=== PATIENT | female | born 1975 ===

== ENCOUNTER 2023-04-12 18:02 | Emergency (ER) | payer BC, OTHER ==
[~2023-04-12] VITALS: Ht 152.4 cm; Wt 77.2 kg
--- NOTE | 2023-04-12 18:17 | ED Lower Extremity ---
General Stated Complaint: LT KNEE PAIN Source: patient History of Present Illness Date Seen by Provider: Apr 12, 2023 Time Seen by Provider: 18:06 Initial Comments 47-year-old female presenting with complaints of pain to the left anterior knee. She states that this initially started about 6 weeks ago but got better. 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 Then this morning she had tried to do a 5K run for work. About 2 miles and she said that she had to stop. She was having increased pain to the knee. She states that the pain occasionally shoots up her leg. She denies any known definite trauma to the knee to cause the pain initially. She had not taken Tylenol or ibuprofen or anything for the pain today. She tried to elevate her leg but was still having pain. She is due to go back to work again tomorrow and was concerned about the pain. Onset: this morning (exacerbation while attempting to run at a 5K event for work) Severity: moderate Pain/Injury Location: left knee Method of Injury: unknown Modifying Factors: Worse With Movement; Improves With Rest Allergies and Home Medications Allergies Coded Allergies: Penicillins (Verified Allergy, Unknown, 04/12/23) cephalexin (Verified Allergy, Unknown, 04/12/23) erythromycin base (Verified Allergy, Unknown, 04/12/23) Patient Home Medication List Home Medication List Reviewed: Yes Review of Systems Constitutional: No chills, No fever EENTM: no symptoms reported Respiratory: no symptoms reported Cardiovascular: no symptoms reported Gastrointestinal: no symptoms reported Genitourinary: no symptoms reported Musculoskeletal: see HPI Skin: No change in color Psychiatric/Neurological: Denies Numbness, Denies Paresthesia Past Fswhsvq-Ehdxkp-Twvnkh Hx Past Medical History Surgery/Hospitalization HX: Hypertension, Depression/anxiety Physical Exam Vital Signs Vital Signs - First Documented 04/12/23 04/12/23 18:06 19:00 Temp 36.5 Pulse 89 Resp 12 B/P (MAP) 146/93 (110) Pulse Ox 96 O2 Delivery Room Air Capillary Refill : Height, Weight, BMI Height: '" Weight: lbs. oz. kg; BMI Method: General Appearance: WD/WN, no apparent distress Cardiovascular: normal peripheral pulses Knees: left knee pain (left anterior knee pain worse with palpation and lateral and medial stress on the joint. no crepitus or drawer sign), left knee soft tissue tenderness Neurologic/Tendon: normal sensation, normal motor functions Neurologic/Psychiatric: alert, oriented x 3 Skin: normal color, warm/dry Progress/Results/Core Measures Results/Orders My Orders Orders - MAGALIE PICKENS MD Knee 3 View Left (04/12/23 18:11) Britton Bandage (04/12/23 18:29) Vital Signs/I&O 04/12/23 04/12/23 18:06 19:00 Temp 36.5 36.5 Pulse 89 89 Resp 12 12 B/P (MAP) 146/93 (110) 146/93 Pulse Ox 96 O2 Delivery Room Air Room Air Progress Progress Note #1: Progress Note Potential diagnosis of knee strain, knee sprain, osteoarthritis, patellar tendon strain obtain xrays of the left knee to look for acute bony injury or abnormality. Pat ient refused Ibuprofen or anything for the pain at this moment. Progress Note #2: Time: 18:28 Progress Note On my personal interpretation and review of the three-view films of her left knee I did not appreciate any acute fracture or bony abnormality. Will apply a Britton bandage for compression and support. Encouraged NSAIDs to try and help with pain. Note for work about limited standing and limited stairs. Check back with her primary care provider if symptoms are persisting and not improving as she may need orthopedics, physical therapy or MRI. In the meantime try RICE therapy and NSAIDS Diagnostic Imaging Diagonstic Imaging: Xray Plain Films/CT/US/NM/MRI: knee Comments NAME: SUSANNAH ALEJANDRE [facility] REC#: [id number] PT STATUS: REG ER : 1975 PHYSICIAN: MAGALIE PICKENS MD ADMIT DATE: 04/12/23/ER FS Signed Date of Exam:04/12/23 KNEE 3 VIEW LEFT EXAMINATION: Left knee radiographs. EXAM DATE: 04/12/2023 6:27 PM COMPARISON: None available. HISTORY: Anterior pain x 6 weeks, worse today after 5K run attempt TECHNIQUE: 3 views. FINDINGS: There is no acute fracture, dislocation or destructive osseous process. The joint spaces are normal. The soft tissues are normal. IMPRESSION: No acute osseous abnormality. Dictated by: Dictated on workstation # [id number] Dict: 04/12/239 Trans: 04/12/231845 [facility] [id number] Interpreted by: ROYCE MORA DO Electronically signed by: ROYCE MORA DO 04/12/231845 Reviewed: Reviewed by Me (I reviewed the radiologist report at 1851) Departure Impression Primary Impression: Strain of left knee Qualified Codes: S86.912A - Strain of unspecified muscle(s) and tendon(s) at lower leg level, left leg, initial encounter Additional Impression: Strain of left patellar tendon Qualified Codes: S86.812A - Strain of other muscle(s) and tendon(s) at lower leg level, left leg, initial encounter Disposition: HOME, SELF-CARE Condition: Stable Departure-Patient Inst. Decision time for Depature: 18:32 Referrals: PAULINE BALDWIN APRN (PCP) Primary Care Physician NO,[facility] (Family) Primary Care Physician Patient Instructions: Knee Pain (DC), Muscle Strain ED, Using Cold for Pain Add. Discharge Instructions: Use the Britton bandage for compression and support. Try to rest and elevate your knee and leg when you can. Apply ice for 15 to 20 minutes every few hours while awake to help with pain and inflammation. For continued pain you could also try taking NSAIDs such as ibuprofen 800 mg or 4 [id number]-[id number] pills every 8 hours as needed for pain and inflammation. If your pain and symptoms continue or worsen then check back with your primary care provider as they may need to order physical therapy, MRI or have you see an physical security specialist. Work/School Note: Work Release Form Date Seen in the Emergency Department: Apr 12, 2023 Return to Work: Apr 13, 2023 Restrictions: No Sports-Until Released Other Restrictions Listed Below: Wear Britton wrap for compression and support. Avoid stairs,prolonged standing Restrictions: For 1 week MAGALIE PICKENS MD Apr 12, 2023 18:17
--- NOTE | 2023-04-12 18:36 | Diagnostic Imaging Report ---
EXAMINATION: Left knee radiographs. EXAM DATE: 04/12/2023 6:27 PM COMPARISON: None available. HISTORY: Anterior pain x 6 weeks, worse today after 5K run attempt TECHNIQUE: 3 views. FINDINGS: There is no acute fracture, dislocation or destructive osseous process. The joint spaces are normal. The soft tissues are normal. IMPRESSION: No acute osseous abnormality. Dictated by: Dictated on workstation # [id number]
[2023-04-12 19:00] VITALS: BP 146/93
== END 2023-04-12 19:00 | disposition home or self-care (01) ==
LOC: ER FS 18:05
DX: S86.912A Strain of unspecified muscle(s) and tendon(s) at lower leg level, left leg, initial encounter (principal); S86.812A Strain of other muscle(s) and tendon(s) at lower leg level, left leg, initial encounter; Z28.310 Unvaccinated for COVID-19; X58.XXXA Exposure to other specified factors, initial encounter; Y93.02 Activity, running
CPT/HCPCS: 73562

== ENCOUNTER → 2023-04-29 | Outpatient (CLI) | payer BC ==
[~2023-04-29] MED LIST: BUPR300T43 PO; FLUO10CA29 PO; MULT-1136 PO; NICO-587 TD; OXC5T PO
== END ==
LOC: ORTHO 09:01
PROVIDERS: ATTEND Orthopaedic Surgery
DX: S83.242A Other tear of medial meniscus, current injury, left knee, initial encounter (principal); X58.XXXA Exposure to other specified factors, initial encounter
CPT/HCPCS: 99203

== ENCOUNTER 2023-04-30 05:29 | Outpatient (CLI) | payer BC ==
[~2023-04-30] VITALS: Ht 152.4 cm; Wt 79.5 kg
[2023-04-30] MEDS ORDERED: MULT-1136 PO (14:15)
[2023-04-30] MEDS ORDERED: BUPR300T43 PO (14:15)
[2023-04-30] MEDS ORDERED: FLUO10CA29 PO (14:15)
[2023-04-30] MEDS ORDERED: NICO-587 TD (14:15)
== END 2023-04-30 14:54 | disposition home or self-care (01) ==
LOC: PREOP 05:29
PROVIDERS: ATTEND Orthopaedic Surgery
DX: Z01.818 Encounter for other preprocedural examination (principal)

== ENCOUNTER 2023-05-05 07:04 | Day surgery (SDC) | payer BC ==
[2023-05-05] VITALS (12 sets, daily range): BP systolic 107–146; BP diastolic 68–90
[~2023-05-05] VITALS: Ht 152 cm; Wt 79.5 kg
[~2023-05-05 07:04] MED LIST changes: -OXC5T PO
[2023-05-05] MEDS ORDERED: CLINDAMYCIN 600 MG/50 ML IVPB 50 ML IV ONE (07:15)
[2023-05-05] MEDS ORDERED: LIDOCAINE 1% w/EPI 1:100,000 20 ML VIAL ONE (07:17)
[2023-05-05] MEDS ORDERED: BUPIVACAINE 0.25% 30 ML VIAL ONE (07:29)
[2023-05-05] MEDS: LACTATED RINGERS 1,000 ML 1,000 ML IV PRN ×2 (07:43→09:09)
[2023-05-05] MEDS ORDERED: proPOfol INJECTION 200 MG/20 ML VIAL IV ONE (07:49)
[2023-05-05] MEDS ORDERED: LIDOCAINE PF 2% 5 ML VIAL ONE (07:49)
[2023-05-05] MEDS ORDERED: dexAMETHasone INJ 10 MG/ML 1 ML VIAL ONE (07:49)
[2023-05-05] MEDS ORDERED: ONDANSETRON INJECTION 4 MG/2 ML (SDV) ONE (07:49)
[2023-05-05] MEDS ORDERED: MIDAZOLAM INJ 2 MG/2 ML VIAL ONE (07:50)
[2023-05-05] MEDS ORDERED: fentaNYL INJECTION 100 MCG/2 ML VIAL ONE (07:50)
--- NOTE | 2023-05-05 08:16 | Progress Note-Pre Operative ---
Pre-Operative Progress Note Date of Available H&P: Apr 29, 2023 Date H&P Reviewed: May 05, 2023 Time H&P Reviewed: 08:05 History & Physical: H&P Reviewed, Patient Examed, No changes noted Pre-Operative Diagnosis: Left Knee Medial Meniscus Tear EKATERINA JUAN MD May 05, 2023 08:16
[2023-05-05] MEDS ORDERED: SEVOFLURANE (ULTANE) 15 ML INHAL SOLN ONE (09:00)
--- NOTE | 2023-05-05 09:07 | Operative Report - Ortho ---
Operative Report Surgeon (s)/Student Financial Services Counselor (s) Surgeon EKATERINA JUAN MD Student Financial Services Counselor n/a Pre-Operative Diagnosis Left Knee Medial Meniscus Tear Post-Operative Diagnosis same Operative Report Date of Procedure: May 05, 2023 Name of Procedure Performed: Left Knee Arthroscopy with Partial Medial Meniscectomy Description & Findings After obtaining informed consent and marking the patient in the preoperative holding area, the patient was administered IV antibiotics and taken to the operating room. General anesthesia was induced. The right lower extremity was placed in the well leg strauss and the left leg was placed in the arthroscopic strauss. Surgical timeout was taken. The left lower extremity was prepped and draped in the usual sterile fashion. An anterolateral portal was established and a diagnostic knee arthroscopy was performed with the following findings: the patellofemoral portion of the joint demonstrated grade I change, the patella tracked well through the trochlear groove, the gutters were free of loose bodies, the medial meniscus demonstrated a radial tear of the posterior horn, grade II change in the medial compartment, ACL was intact, lateral compartment with intact lateral meniscus and grade II articular cartilage change. An anteromedial portal was established. Probe was inserted and the meniscal tear was explored. Basket biter was inserted the tear was grossly debrided. Shaver was inserted and the meniscal tear was debrided to a stable border. Probe was reinserted and confirmed that the area of mensicectomy was stable. Instruments were withdrawn. Wounds were closed with 3-0 nylon and dressed with xeroform, 4x4s, ABD, cast padding, and JESSEE wrap. Patient tolerated the procedure well and was stable to the recovery room. Anesthesia Type General Estimated Blood Loss minimal Specimen(s) collected/removed None EKATERINA JUAN MD May 05, 2023 09:07
[2023-05-05] MEDS ORDERED: OXC5T PO (09:09)
[2023-05-05] MEDS ORDERED: morphine INJ 10 MG/ML 1ML (SYR OR VIAL) IVP ONE (09:15)
[2023-05-05] MEDS: ONDANSETRON INJECTION 4 MG/2 ML (SDV) IVP PRN ×2 (09:39→09:42)
--- NOTE | 2023-05-05 10:02 | Anesthesia-General Post-Op ---
General Patient Condition Mental Status/LOC: Same as Preop Cardiovascular: Satisfactory Nausea/Vomiting: Absent Respiratory: Satisfactory Pain: Controlled Complications: Absent Post Op Complications Complications None Follow Up Care/Instructions Patient Instructions None needed. Anesthesia/Patient Condition Patient Condition Patient is doing well, no complaints, stable vital signs, no apparent adverse anesthesia problems. No complications reported per nursing. EKATERINA BOWMAN CRNA May 05, 2023 10:02
--- NOTE | 2023-05-05 12:03 | Physical Therapy Ortho Eval ---
PT Orthopedic Evaluation Type of Surgery Knee Scope Left Knee Medial Meniscus Tear Prior Level of Function Current Living Status: Other Family Locomotion (Upon Admit): Independent Established Durable Medical Eq: None Subjective Entry Into Home: Stairs With Railing, Stairs Without Railing Steps Into Home: 4 Motor Control Motor Control: Motor Control WNL ROM ROM: WFL, except focal deficit Strength Strength: WFL Transfer SCALE: Activities may be completed with or without assistive devices. 4-Mqrmyzrpfl-jxvazgv completes the activity by him/herself with no assistance from a helper. 5-Set-up or Clean-up Assistance-helper sets up or cleans up; patient completes activity. [place] assists only prior to or following the activity. 4-Supervision or Touching Assistance-helper provides verbal cues and/or touching/steadying and/or contact guard assistance as patient completes activity. Assistance may be provided throughout the activity or intermittently. 3-Partial/Moderate Assistance-helper does LESS THAN HALF the effort. [place] lifts, holds or supports trunk or limbs, but provides less than half the effort. 2-Substantial/Maximal Assistance-helper does MORE THAN HALF the effort. [place] lifts or holds trunk or limbs and provides more than half the effort. 0-Xhjnwvgaz-oglzgv does ALL the effort. Patient does none of the effort to complete the activity. Or, the assistance of 2 or more helpers is required for the patient to complete the activity. If activity was not attempted, code reason: 7-Patient Refused. 9-Not Applicable-not attempted and the patient did not perform the activity bef ore the current illness, exacerbation or injury. 10-Not Attempted due to Environmental Limitations-(lack of equipment, weather r estraints, etc.). 88-Not Attempted due to Medical Conditions or Safety Concerns. Transfers (B, C, W/C) (QC): 6 Gait Gait Assistive Device: Crutches Right Lower Extremity: Right Weight Bearing Status RLE: Full Weight Bearing Left Lower Extremity: Left Weight Bearing Status LLE: Weight Bearing/Tolerated Gait (QC): 6 Distance: 150' Stairs #of Steps: 4 Walking Assistive Device: Crutches Treatment Rendered Treatment: Gait Train, Step Train Assessment/Goals Goal Time Frame: 1 Visit Safe Ambulation: Yes Plan Treatment Plan: Discharge PT/Family Agrees to Plan: Yes Time Time In: 1116 Time Out: 1126 Total Billed Treatment Time: 10 Billed Treatment Time 1 visit EVLowC 10 min JUAN CARLOS SWAN PT May 05, 2023 12:02
== END 2023-05-05 11:23 | disposition home or self-care (01) ==
LOC: SDC 07:04
PROVIDERS: ATTEND Orthopaedic Surgery
DX: S83.242A Other tear of medial meniscus, current injury, left knee, initial encounter (principal); M94.8X6 Other specified disorders of cartilage, lower leg; Z28.310 Unvaccinated for COVID-19; F17.210 Nicotine dependence, cigarettes, uncomplicated
CPT/HCPCS: 87081

== ENCOUNTER → 2023-05-20 | Outpatient (CLI) | payer BC ==
[~2023-05-20] MED LIST changes: +OXC5T PO
== END ==
LOC: ORTHO 08:55
PROVIDERS: ATTEND Orthopaedic Surgery
DX: Z47.89 Encounter for other orthopedic aftercare (principal)

== ENCOUNTER → 2023-06-19 | Outpatient (CLI) | payer BC | LOC: ORTHO 08:26 | PROVIDERS: ATTEND Orthopaedic Surgery | DX: Z47.89 Encounter for other orthopedic aftercare (principal) ==

== ENCOUNTER → 2023-07-29 | Outpatient (CLI) | payer BC | LOC: ORTHO 08:50 | PROVIDERS: ATTEND Orthopaedic Surgery | DX: Z47.89 Encounter for other orthopedic aftercare (principal) ==